=== PATIENT | male | born 1960 | race Caucasian/White ===

== ENCOUNTER 2023-11-15 14:50 | Emergency (ER) | payer MEDICARE, OTHER, SELFPAY ==
[2023-11-15 15:04] VITALS: BP 151/85; PULSE 63; RESP 18; TEMP 36.3; O2SAT 98
--- NOTE | 2023-11-15 15:26 | ED.HEATRA ---
HPI - Head Injury General Chief complaint: Head Injury Stated complaint: Running, fall Head Injury Time Seen by Provider: 11/15/23 15:07 History of Present Illness HPI Narrative: Patient is a 63-year-old male with history of prostate cancer, not on anticoagulation here after a fall. He states about an hour prior to arrival he was running [place] a trail, tripped and fell down onto his right side. He states that he was wearing glasses had felt the glasses pushed down on the top of his ear. He had immediate pain and bleeding from the ear noting laceration. He denies loss of consciousness, noted that he seemed a bit stunned but did not seem to black out. Denies any other pain at this time. He does note abrasions to his forehead, right shoulder, right elbow, right knee. He was able ambulate after the incident. He endorses normal hearing in this ear. Also has normal sensation in this ear. Related Data Home Medications Medication Instructions Recorded Confirmed fexofenadine 60 mg tablet (Elizabeth mg 11/15/23 Allergy) glucosamine-chondroitin 250 mg-200 tablet 11/15/23 mg tablet (Osteo Bi-Flex) multivitamin tablet 11/15/23 Allergies Allergy/AdvReac Type Severity Reaction Status Date / Time adhesive tape AdvReac Swelling Verified 11/15/23 15:15 Review of Systems Review of Systems: All systems reviewed & are unremarkable except as noted in HPI and below Exam Narrative: GENERAL: Well-appearing, well-nourished, and in no acute distress. HEAD: Normocephalic, multiple small abrasions present to the forehead, bleeding controlled. EYES: PERRLA and EOMI. ENT: Nares clear. Mucous membranes moist. 1 cm abrasion to the bridge to the left side of the nares. No nasal bone tenderness, no septal hematoma appreciated. No epistaxis. Patient has large full-thickness laceration surrounding the entire posterior and superior aspect of the right ear. Concerning underlying cartilage involvement. Ear is dusky in color. Mild bleeding. Sensation intact. NECK: Supple. CHEST: Clear to auscultation. No respiratory distress. No chest wall tenderness HEART: Regular rate and rhythm. Normal peripheral pulses. ABDOMEN: Soft, nontender, nondistended. EXTREMITIES: Normal range of motion. No edema. Abrasion over the anterior right shoulder, full range of motion. Strong radial pulse. Abrasion present over the right elbow. Nontender, full range of motion. Region present over the right knee, nontender, full range of motion. SKIN: Warm, dry, no rash. NEURO: No focal deficits. Alert and oriented x3. Course Course Emergency Course: Patient seen evaluated on arrival to the emergency department. Exam performed by myself. Concern for dusky appearance of ear and deep laceration, no ENT on-call today. Believe patient would benefit from emergent transfer to [facility]uma [facility] for complex ear laceration and likely surgical consultation. Unasyn ordered. Morphine, Zofran ordered. Patient advised to remain NPO. Tetanus UTD (last received 6 month ago). Discussed case with [facility] Transfer line. Patient accepted for ED to ED transfer by Dr. Orona. Should patient be here in the emergency department for a prolonged period of time will perform imaging here otherwise [facility] ED okay with holding on imaging until arrival to the emergency department there. Patient updated on plan of care, agreeable. Patient was brought down to [place] however EMS arrived at the same time as they are going to begin scans. Transfer took precedence over emergent imaging here in our emergency department and he was transferred to [facility] emergency department via EMS. Vital Signs Vital signs: Vital Signs Temperature 97.3 F L 11/15/23 15:04 Pulse Rate 63 11/15/23 15:04 Respiratory Rate 18 11/15/23 15:04 Blood Pressure 151/85 H 11/15/23 15:04 Pulse Oximetry 98 11/15/23 15:04 Oxygen Delivery Room Air 11/15/23 15:04 Temperature 97.3 F L 11/15/23 15:04 Pulse Rate 63 03
[2023-11-15 15:35] LABS: Basophils Absolute Auto 0.1 K/mm3 (0.0-0.1); Basophils Percent Auto 0.8 % (0.2-1.2); Eosinophils Absolute Auto 0.1 K/mm3 (0-0.3); Eosinophils Percent Auto 1.7 % (0-4.4); Hematocrit 43.9 % (42.0-52.0); Hemoglobin 14.8 g/dL (14.0-18.0); Immature Granulocyte Absolute 0.02 K/mm3 (0.00-0.031); Immature Granulocyte Percent A 0.3 % (0-0.5); Lymphocytes Absolute Auto 1.33 K/mm3 (0.9-3.2); Lymphocytes Percent Auto 20.2 % (18.3-44.2); Mean Corpuscular HGB Conc 33.7 g/dl (32-36); Mean Corpuscular Hemoglobin 30.7 pg (26-34); Mean Corpuscular Volume 91.1 fl (80-100); Mean Platelet Volume 9.1 fl (7.4-10.4); Monocytes Absolute Auto 0.5 K/mm3 (0.1-0.6); Monocytes Percent Auto 7.7 % (2.6-8.5); Neutrophils Absolute Auto 4.6 K/mm3 (1.3-6.7); Neutrophils Percent Auto 69.3 % (45.5-73.1); Platelet Count Result 293 k/mm3 (150-375); Red Blood Count 4.82 M/mm3 (4.6-6.20); Red Cell Distribution Width 12.6 % (11.5-14.5); White Blood Count 6.6 K/mm3 (4.5-10.0)
[2023-11-15] MEDS: AMPICILLIN SULB 3 GM/NS 100 ML 3 GM/100 ML VIAL IVPB (15:36)
[2023-11-15] MEDS: MORPHINE SULFATE (*CRX) 4 MG/ML INJ IV PUSH (15:37)
[2023-11-15] MEDS: ONDANSETRON INJ 4 MG/2 ML VIAL IV PUSH (15:37)
[2023-11-15 15:47] LABS: INR 0.9; Partial Thromboplastin Time 25.9 SECONDS (22.3-36.8); Prothrombin Time 12.9 Seconds (11.1-14.7)
--- NOTE | 2023-11-15 15:53 | PC.NURSE ---
Report called to GEO David, at [facility]. All questions answered.
== END 2023-11-15 16:04 | disposition short-term general hospital (02) ==
PROVIDERS: Emergency Provider Student in an Organized Health Care Education/Training Program
DX: S01.312A Laceration without foreign body of left ear, initial encounter (principal); S40.211A Abrasion of right shoulder, initial encounter; S50.311A Abrasion of right elbow, initial encounter; Z85.46 Personal history of malignant neoplasm of prostate; Z79.899 Other long term (current) drug therapy; W01.0XXA Fall on same level from slipping, tripping and stumbling without subsequent striking against object, initial encounter
CPT/HCPCS: 36415; 85025; 85610; 85730; 96365; 96375; 99285; J0295; J2270; J2405